=== PATIENT | female | born 1995 | race Two or more races ===

== ENCOUNTER 2017-08-13 05:43 | Day surgery (SDC) | payer OTHER ==
[~2017-08-13] VITALS: Ht 172.7 cm; Wt 59.0 kg
[~2017-08-13 05:43] MED LIST: ATARAX,VISTARIL25 MG PO; CETIRIZINE HCL10 M2 PO; CLONIDINE HCL0.1 MG PO; COLACE100 MG PO; CONCERTA36 MG PO; CONCERTA54 MG PO; DESYREL100 MG PO; FLUOXETINE HCL10 M1 PO; FOCALIN XR30 MG PO; GEODON20 MG PO; GEODON60 MG PO; LEVOTHYROXINE25 MCG PO; MIRALAX255 GM PO; ORTHO TRI-CYCL1 EACH PO; PROAIR HFA8.5 GM IH; SEROQUEL100 MG PO; SEROQUEL200 MG PO; SINGULAIR10 MG PO; STRATTERA40 MG PO; TEGRETOL-XR,CA400 MG PO; TEGRETOL100 MG PO; VENTOLIN HFA18 GM IH; VITAMIN D32000 UNIT PO
[2017-08-13 06:38] VITALS: BP 104/65
[2017-08-13] MEDS ORDERED: COLACE100 MG PO (09:02)
[2017-08-13] MEDS ORDERED: PERCOCET 5/31 TABLET PO (09:02)
[2017-08-13 09:40] VITALS: BP 114/77
[2017-08-13 10:29] VITALS: BP 109/67
== END 2017-08-13 10:30 | disposition home or self-care (01) ==
LOC: SDC 05:43
PROC: 0JB90ZZ Excision of Buttock Subcutaneous Tissue and Fascia, Open Approach (ICD-10-PCS; principal; 2017-08-13)
DX: L05.01 Pilonidal cyst with abscess (principal); F41.9 Anxiety disorder, unspecified; F17.200 Nicotine dependence, unspecified, uncomplicated; Z88.0 Allergy status to penicillin
CPT/HCPCS: 88304; J0131; J1100; J1170; J1580; J1885; J2250; J2710; J3010; J7050; S0030

== ENCOUNTER 2017-08-24 10:49 | Emergency (ER) | payer OTHER ==
[~2017-08-24] VITALS: Ht 165.1 cm; Wt 70.8 kg
[~2017-08-24 10:49] MED LIST changes: +PERCOCET 5/31 TABLET PO
[2017-08-24 15:02] VITALS: BP 122/70
== END 2017-08-24 15:02 | disposition home or self-care (01) ==
LOC: EME 10:49
PROC: 0HQ8XZZ Repair Buttock Skin, External Approach (ICD-10-PCS; principal; 2017-08-24)
DX: Z48.02 Encounter for removal of sutures (principal); L05.91 Pilonidal cyst without abscess; Z88.0 Allergy status to penicillin; Z88.1 Allergy status to other antibiotic agents; F17.200 Nicotine dependence, unspecified, uncomplicated
CPT/HCPCS: 99281; 99285

== ENCOUNTER 2017-11-29 10:30 | Emergency (ER) | payer OTHER ==
[~2017-11-29] VITALS: Ht 165.1 cm; Wt 66.5 kg
[2017-11-29] MEDS ORDERED: INDERAL10 MG PO (11:05)
[2017-11-29 11:29] LABS: BASOPHIL (%) 0.5 % (0-1); EOSINOPHIL (%) 0.5 % (0-5); HEMATOCRIT 41.2 % (36.0-46.0); HEMOGLOBIN 14.3 G/DL (11.9-15.5); IMMATURE GRANULOCYTE (%) 0.1 % (0.0-0.7); LYMPHOCYTE (%) 27.2 % (15-42); LYMPHOCYTE COUNT 2.1 K/uL (1.0-2.8); MCH 29.4 PG (29.0-34.0); MCHC 34.7 G/DL (30.0-36.0); MCV 84.6 FL (83-99); MONOCYTE COUNT 0.5 K/uL (0-0.8); NEUTROPHIL (%) 64.7 % (45-76); NEUTROPHIL COUNT 4.9 K/uL (1.8-6.4); PLATELET COUNT 233 K/uL (156-360); RBC DIS.WIDTH-CV 12.3 % (11.8-14.6); RBC DIS.WIDTH-SD 37.8 % (39-53); RED BLOOD COUNT 4.87 M/uL (3.80-5.20); WHITE BLOOD COUNT 7.5 K/uL (4.1-10.2)
[2017-11-29 11:44] LABS: APPEARANCE CLEAR ((CLEAR)); BILIRUBIN NEGATIVE; BLOOD NEGATIVE; COLOR YELLOW ((YELLOW)); GLUCOSE (STRIP) NEGATIVE; KETONES NEGATIVE; LEUKOCYTES TRACE; NITRITE NEGATIVE; PROTEIN (STRIP) NEGATIVE; SPECIFIC GRAVITY 1.012 (1.000-1.030); UROBILINOGEN 0.2 MG/DL (0.2-1.0)
[2017-11-29 11:48] LABS: BACTERIA NONE SEEN /HPF; EPITHELIAL CELLS 1+ /HPF; MUCUS TRACE /LPF; RED BLOOD CELLS 0-5 /HPF (0-5); WHITE BLOOD CELLS 0-5 /HPF (0-5)
[2017-11-29 11:53] LABS: AMPHETAMINE NEGATIVE (500 ng/mL); BARBITURATES NEGATIVE (200 ng/mL); BENZODIAZEPINES NEGATIVE (150 ng/mL); BUPRENORPHINE NEGATIVE (10 ng/mL); COCAINE NEGATIVE (150 ng/mL); METHADONE NEGATIVE (200 ng/mL); METHAMPHETAMINE NEGATIVE (500 ng/mL); OPIATES (MORPHINE) NEGATIVE (100 ng/mL); OXYCODONE NEGATIVE (100 ng/mL); PHENCYCLIDINE NEGATIVE (25 ng/mL); PROPOXYPHENE NEGATIVE (300 ng/mL); THC CANNABINOIDS PRESUMPTIVE POSITIVE (50 ng/mL); TRICYCLIC ANTIDEPRESSANTS NEGATIVE (300 ng/mL)
[2017-11-29 12:04] LABS: CHLORIDE 107 MEQ/L (99-109); CREATININE 0.7 MG/DL (0.6-1.3); GFR ESTIMATE (CALCULATED) > 59 mL/min/; GLUCOSE 86 mg/dL (70-99); POTASSIUM 3.7 MEQ/L (3.7-5.4); SODIUM 139 MEQ/L (136-147); UREA NITROGEN (BUN) 13 mg/dL (9-23)
[2017-11-29 12:19] LABS: QUANTITATIVE HCG < 4.0 MIU/ML
[2017-11-29 12:37] LABS: SERUM ETHYL ALCOHOL < 10 mg/dL
[2017-11-29 13:27] VITALS: BP 133/87
== END 2017-11-29 13:29 | disposition home or self-care (01) ==
LOC: EME 10:30
PROVIDERS: Emergency Medicine
DX: F41.9 Anxiety disorder, unspecified (principal); F32.9 Major depressive disorder, single episode, unspecified; Z04.6 Encounter for general psychiatric examination, requested by authority; F31.9 Bipolar disorder, unspecified; F17.200 Nicotine dependence, unspecified, uncomplicated; Z91.5 Personal history of self-harm; Z88.0 Allergy status to penicillin; Z88.8 Allergy status to other drugs, medicaments and biological substances
CPT/HCPCS: 80048; 81003; 84702; 84999; 85025; 90837; 99281; 99285; G0480

== ENCOUNTER 2018-03-30 01:47 | Emergency (ER) | payer OTHER ==
[~2018-03-30] VITALS: Ht 162.6 cm; Wt 67.8 kg
[~2018-03-30 01:47] MED LIST changes: +INDERAL10 MG PO
[2018-03-30 03:14] LABS: HEMOGLOBIN 13.6 G/DL (11.9-15.5); MCH 29.8 PG (29.0-34.0); MCV 87.7 FL (83-99); PLATELET COUNT 225 K/uL (156-360); RBC DIS.WIDTH-SD 41.7 % (39-53); RED BLOOD COUNT 4.56 M/uL (3.80-5.20); WHITE BLOOD COUNT 10.7 K/uL (4.1-10.2)
[2018-03-30 03:25] LABS: ALBUMIN 4.8 g/dL (3.2-4.8)
[2018-03-30 03:26] LABS: CHLORIDE 108 mEq/L (99-109); POTASSIUM 3.8 mEq/L (3.7-5.4); SODIUM 140 mEq/L (136-147)
[2018-03-30 03:28] LABS: GLUCOSE 97 mg/dL (70-99); TOTAL PROTEIN 7.6 g/dL (6.4-8.3)
[2018-03-30 03:30] LABS: TOTAL BILIRUBIN 0.5 mg/dL (0.0-1.0)
[2018-03-30 03:31] LABS: ALKALINE PHOSPHATASE 67 IU/L (3-129)
[2018-03-30 03:32] LABS: CREATININE 0.8 mg/dL (0.6-1.3); GFR ESTIMATE (CALCULATED) > 59 mL/min/
[2018-03-30 03:33] LABS: AST (GOT) 22 IU/L (2-34); UREA NITROGEN (BUN) 16 mg/dL (9-23)
[2018-03-30 03:35] LABS: ALT (GPT) 25 IU/L (3-49)
[2018-03-30 04:12] LABS: APPEARANCE SL.HAZY ((CLEAR)); BILIRUBIN NEGATIVE; BLOOD NEGATIVE; COLOR YELLOW ((YELLOW)); GLUCOSE (STRIP) NEGATIVE; KETONES NEGATIVE; LEUKOCYTES MODERATE; NITRITE NEGATIVE; PROTEIN (STRIP) NEGATIVE; SPECIFIC GRAVITY 1.025 (1.000-1.030)
[2018-03-30 04:15] LABS: BACTERIA NONE SEEN /HPF; EPITHELIAL CELLS 1+ /HPF; MUCUS TRACE /LPF; RED BLOOD CELLS 0-5 /HPF (0-5); UCUL ADDED? YES
[2018-03-30 04:17] VITALS: BP 120/78
== END 2018-03-30 04:19 | disposition home or self-care (01) ==
LOC: EME 01:47
PROVIDERS: Emergency Medicine
DX: R51 Headache (principal); R11.0 Nausea; Z88.0 Allergy status to penicillin; F17.200 Nicotine dependence, unspecified, uncomplicated
CPT/HCPCS: 70450; 80053; 81003; 81025; 85027; 87086; 99281; 99284; J2765